=== PATIENT | male | born 1945 | race Caucasian/White ===

== ENCOUNTER 2017-11-24 21:11 | Emergency (ER) | payer MEDICARE ==
[2017-11-24 21:17] VITALS: BP 157/81
[2017-11-24] MEDS ORDERED: GLUCAGON 1 MG/ML VIAL IVP STA (21:40)
--- NOTE | 2017-11-24 21:41 | ED Physician Documentation ---
History of Present Illness - Stated complaint Stated Complaint: CHOKING - Chief complaint Chief Complaint: Heent - History obtained from History obtained from: Patient - History of Present Illness Timing: Other (He has a history of previous esophageal foreign bodies, he was eating fish tonight a few hours ago and feels like it is stuck low in the chest and is unable to swallow his secretions.) Review of Systems Constitutional: denies: Fever, Chills Cardiac: denies: Chest pain / pressure, Palpitations Respiratory: denies: Dyspnea, Cough GI: denies: Abdominal Pain, Nausea, Vomiting PD PAST MEDICAL HISTORY - Past Medical History Past Medical History: Yes Cardiovascular: Hypertension - Past Surgical History Past Surgical History: Yes - Present Medications Home Medications: Ambulatory Orders Medication Instructions Recorded Confirmed Atenolol 1 tab PO DAILY PRN 04/11/16 04/11/16 Lisinopril 1 tab PO DAILY 04/11/16 04/11/16 - Allergies Allergies/Adverse Reactions: Allergies Allergy/AdvReac Type Severity Reaction Status Date / Time No Known Drug Allergies Allergy Verified 11/24/17 21:17 - Social History Does the pt smoke?: No Smoking Status: Never smoker Does the pt drink ETOH?: Yes Does the pt have substance abuse?: No - Immunizations Immunizations are current?: Yes PD ED PE NORMAL - Vitals Vital signs reviewed: Yes - General General: Alert and oriented X 3, Other (He is spitting into a bag) - HEENT HEENT: Pharynx benign - Neck Neck: Supple, no meningeal sign, No bony TTP - Cardiac Cardiac: RRR, Other (Subtle systolic murmur) - Respiratory Respiratory: No respiratory distress, Clear bilaterally - Abdomen Abdomen: Normal bowel sounds, Soft, Non tender - Back Back: No CVA TTP, No spinal TTP - Derm Derm: Normal color, Warm and dry - Extremities Extremities: No deformity, No tenderness to palpate, No edema, No calf tenderness / cord - Neuro Neuro: Alert and oriented X 3, Normal speech - Psych Psych: Normal mood, Normal affect Results - Vitals Vitals: Vital Signs - 24 hr 11/24/17 21:12 Temperature 36.7 C Heart Rate 86 Respiratory 18 Rate Blood Pressure 157/81 H O2 Saturation 94 Oxygen O2 Source Room air PD MEDICAL DECISION MAKING - ED course ED course: 71-year-old gentleman presents with esophageal foreign body obstruction due to food, after the administration 2 mg of IV glucagon and liquid with easy gas he passed the obstruction was able to tolerate oral fluids. Departure - Departure Disposition: 01 Home, Self Care Clinical Impression: Impacted esophageal foreign body Qualifiers: Encounter type: initial encounter Qualified Code(s): T18.108A - Unspecified foreign body in esophagus causing other injury, initial encounter Condition: Good Record reviewed to determine appropriate education?: Yes Instructions: ED Foreign Body Esophageal Rslv Comments: Your blood pressure was elevated today on check into the emergency department. This does not mean that you have hypertension, it is a common phenomenon to come to the emergency department and have elevated blood pressure. I recommend that you see your primary care physician within the week to have it rechecked when you are feeling better.
[2017-11-24] MEDS ORDERED: WATER FOR INJECTION,STERILE 10 ML ONE (22:15)
== END 2017-11-24 22:31 | disposition home or self-care (01) ==
LOC: ED 21:11
DX: T18.128A Food in esophagus causing other injury, initial encounter (principal); X58.XXXA Exposure to other specified factors, initial encounter; I10 Essential (primary) hypertension
CPT/HCPCS: 96374; 99283; 99284

== ENCOUNTER 2021-02-15 11:52 | Outpatient (CLI) | payer MEDICARE | END 2021-02-15 11:53 | disposition short-term general hospital (02) | LOC: EMS 11:52 | DX: R42 Dizziness and giddiness (principal) | CPT/HCPCS: A0425; A0429 ==

== ENCOUNTER 2024-02-18 17:48 | Outpatient (CLI) | payer MEDICARE | END 2024-02-18 23:59 | disposition EMS.NT | LOC: EMS 17:48 | DX: R10.33 Periumbilical pain (principal); R11.0 Nausea ==